=== PATIENT | female | born 1960 | race Asian ===

== ENCOUNTER 2023-11-24 11:01 | Emergency (ER) | payer SELFPAY ==
[2023-11-24 11:06] VITALS: BP 104/80
--- NOTE | 2023-11-24 11:10 | ED.GENMED ---
ED Provider Triage
<Kasey Story PA-C - Last Filed: 11/24/23 11:14>
-
Patient seen by provider in Triage?: Seen in Triage
Attestation: A medical screening examination has been initiated by a qualified medical provider. Based on the assessment performed at this time, it has been determined that an emergent medical condition may exist and the patient has been informed
that further medical evaluation and possible additional diagnostic testing may be needed.
HPI: 63yoF here with intermittent chest pain x 5 days. Radiates to neck. No dyspnea. Hx of HLD.
GENERAL: Alert , in no apparent distress
EYE: No visual abnormalities.
NECK: Trachea midline
ENT: No visible abnormalities.
LUNGS: No acute respiratory distress
NEUROLOGICAL: Alert and oriented
SKIN: Skin intact. No visible changes.
MUSCULOSKELETAL: Moving extremities normally
PSYCH: Normal and appropriate interaction.
This is a medical evaluation conducted in person to initiate diagnostic evaluation and provide initial therapeutics. Please see further documentation by the treating clinician.
Cardiac labs, EKG, and CXR ordered.
History of Present Illness
<Kasey Story PA-C - Last Filed: 11/24/23 11:14>
General
Chief Complaint: Chest Pain
Time Seen by Provider: 11/24/23 11:52
<Prieto Girard MD - Last Filed: 11/25/23 15:04>
General
Source: patient
Exam Limitations: none
Nursing documentation reviewed up to this point in time: agreed with
History of Present Illness
History of Present Illness:
Patient with history of hypercholesterolemia, status post right shoulder injury 6 months ago, presents to ED secondary to intermittent left-sided chest pain over the past 5 days. Chest pain described as tightness, intermittent radiation to left
side of neck, without any alleviating or exacerbating factors. Denies associated shortness of breath, nausea, diaphoresis, or dizziness. Chest pain has lasted approximately 30 minutes with spontaneous resolution and this has happened 3-4 times
daily for the past 5 days. Denies previous history of similar symptoms. Denies family history of heart disease. Denies smoking. Denies leg pain or swelling. Denies back pain.
Review of Systems
<Prieto Girard MD - Last Filed: 11/25/23 15:04>
Review of Systems
Allergies reviewed?: Yes
All Other Systems: ROS reviewed and negative except as documented in HPI and ROS
Constitutional: Reports no symptoms
EENT: Reports no symptoms
Respiratory: Reports no symptoms
Cardiac: Reports chest pain
ABD/GI: Reports no symptoms
: Reports no symptoms
Musculoskeletal: Reports no symptoms
Skin: Reports no symptoms
Neurological: Reports no symptoms
Phy Exam
<Prieto Girard MD - Last Filed: 11/25/23 15:04>
Physical Exam
Physical Exam:
Physical Exam
General: no apparent distress, not acutely ill. afebrile
Head: nc/at. eomi
Neck: supple. no meningeal signs.
Heart: s1/s2 regular rate and rhythm, systolic ejection murmur. equal radial pulses.
Lungs: no acute respiratory distress. clear bilaterally
Abdomen: normal bowel sounds. not tender.
Neuro: alert and oriented. no focal neurological deficits
Skin: no rash
Psychiatric: well kept. interactive and cooperative
Extremities: no edema. no calf tenderness.
Scores
<Prieto iGrard MD - Last Filed: 11/25/23 15:04>
Heart Score for Chest Pain Patients
STEMI patient?: No
History: Slightly or Non-Suspicious
ECG: Normal
Age: >45 - <65 years
Risk Factors: 1 or 2 Risk Factors
Troponin: </= Normal Limit
Heart Score for Chest Pain Patients: 2
Heart Score Risk: 2.5% MACE over next 6 weeks
Course
<Kasey Story PA-C - Last Filed: 11/24/23 11:14>
Orders/Labs/Results
Orders:
Orders
11/24/23 11:02
ECG [Electrocardiogram (*1)] Urgent
Reason for Study: Chest Pain
EKG- Treatment ONCE
11/24/23 11:11
Complete Blood Count/With Diff Urgent
Comprehensive Metabolic Panel Urgent
Troponin I Urgent
11/24/23 11:15
CR Chest - 2 Views Urgent
Comment:
Reason For Exam: CP
11/24/23 12:25
EKG [Electrocardiogram (*1)] Urgent
Reason for Study: Chest Pain
11/24/23 12:26
EKG- Treatment ONCE
11/24/23 12:33
D-Dimer Urgent
11/24/23 15:10
Troponin I Urgent
Abnormal Lab Results
11/24/23
11:11
MCV 79.6 L fL
(81.0-99.0)
MCH 26.8 L pg
(27.0-31.0)
RDW 15.5 H %
(11.5-14.5)
Monocytes % 10.0 H %
(1.7-9.3)
Glucose 115 H mg/dl
(70-99)
11/24/23 11:11
11/24/23 11:11
Vital Signs
Initial and Last Documented VS:
Initial Vital Signs
Temp Pulse Resp BP Pulse Ox
99 F 87 18 104/80 99
11/24/23 11:06 11/24/23 11:06 11/24/23 11:06 11/24/23 11:06 11/24/23 11:06
Last Documented Vital Signs
Temp Pulse Resp BP Pulse Ox
99 F 74 18 110/66 98
11/24/23 11:06 11/24/23 16:17 11/24/23 16:17 11/24/23 16:17 11/24/23 16:17
<Prieto Girard MD - Last Filed: 11/25/23 15:04>
Orders/Labs/Results
Orders:
Orders
11/24/23 11:02
ECG [Electrocardiogram (*1)] Urgent
Reason for Study: Chest Pain
EKG- Treatment ONCE
11/24/23 11:11
Complete Blood Count/With Diff Urgent
Comprehensive Metabolic Panel Urgent
Troponin I Urgent
11/24/23 11:15
CR Chest - 2 Views Urgent
Comment:
Reason For Exam: CP
11/24/23 12:25
EKG [Electrocardiogram (*1)] Urgent
Reason for Study: Chest Pain
11/24/23 12:26
EKG- Treatment ONCE
11/24/23 12:33
D-Dimer Urgent
11/24/23 15:10
Troponin I Urgent
Abnormal Lab Results
11/24/23
11:11
MCV 79.6 L fL
(81.0-99.0)
MCH 26.8 L pg
(27.0-31.0)
RDW 15.5 H %
(11.5-14.5)
Monocytes % 10.0 H %
(1.7-9.3)
Glucose 115 H mg/dl
(70-99)
11/24/23 11:11
11/24/23 11:11
Vital Signs
Initial and Last Documented VS:
Initial Vital Signs
Temp Pulse Resp BP Pulse Ox
99 F 87 18 104/80 99
11/24/23 11:06 11/24/23 11:06 11/24/23 11:06 11/24/23 11:06 11/24/23 11:06
Last Documented Vital Signs
Temp Pulse Resp BP Pulse Ox
99 F 74 18 110/66 98
11/24/23 11:06 11/24/23 16:17 11/24/23 16:17 11/24/23 16:17 11/24/23 16:17
<Prieto Girard MD - Last Filed: 11/25/23 15:04>
MDM/Problems Addressed
MDM/Problems Addressed:
Patient with unremarkable workup in ED, including blood work, EKG, and chest x-ray. D-dimer negative. Patient remains afebrile, hemodynamically stable, and nontoxic-appearing. Will repeat troponin and if negative, patient will be discharged home
for an outpatient follow-up with cardiology. Patient and family expressed understanding at time of discharge, including instructions to return to ED with recurrent or worsening or different symptoms.
<Prieto Girard MD - Last Filed: 11/25/23 15:04>
*EKG
Interpreted by ED Provider?: Yes
EKG Intrepretation Date: 11/24/23
Heart Rate: 82
Rate: normal
Rhythm: sinus
[place]: normal axis
Interval: normal interval
*Critical Care Note
Total Time (30-74mins, 75-104mins- exclusive of procedures): Not Applicable
ED Attending Note
<Kasey Story PA-C - Last Filed: 11/24/23 11:14>
-
Portions of this chart may have been created with voice recognition software.� Occasional wrong word or��sound alike� substitutions may have occurred due to the inherent limitations of voice recognition software.
Discharge Plan
Departure
Patient Disposition: Home (Routine Discharge)
Patient with high blood pressure during this ER visit?: No
Condition: Good
Discharge Problem:
Chest pain
Instructions: Chest Pain [facility] Follow Up
Referrals:
J Luis Rodriguez MD [Active] -
Activity Restrictions/Additional Instructions:
As discussed, please follow-up with referred air traffic control operator for further evaluation and treatment. Please consider return to ED with recurrent or worsening symptoms.
Interventions
Interventions:
*Risk Screen - Suicide Last Done: 11/24/23 11:06
*General Assessment Last Done: 11/24/23 11:06
*Neglect/Abuse Screening Last Done: 11/24/23 11:06
*ED COVID-19 Vaccine History Last Done: 11/24/23 11:06
*Nursing Disposition Last Done: 11/24/23 16:17
ED- Cardiac Assessment Last Done: 11/24/23 12:24
Discharge Date and Time
Discharge Date/Time: 11/24/23 15:30
Print Language: FRENCH
[2023-11-24 11:21] LABS: % Basophils 0.5 % (0-2); % Eosinophils 0.5 % (0-6); % Immature Granulocytes 0.2 % (0-0.5); % Lymphocytes 31.3 % (20.5-51.1); % Neutrophils 57.5 % (42.2-75.2); Absolute Lymphocytes 1.8 10^3/uL (1.2-3.4); Absolute Monocytes 0.6 10^3/uL (0.1-0.6); Absolute Neutrophils 3.3 10^3/uL (1.4-6.5); Hematocrit 40.1 % (37.0-47.0); Hemoglobin 13.5 g/dL (12.0-16.0); Mean Corp Hgb Conc. 33.7 g/dL (33.0-37.0); Mean Corpuscular Hgb 26.8 pg (27.0-31.0); Mean Corpuscular Volume 79.6 fL (81.0-99.0); Mean Platelet Volume 9.9 fL (7.4-10.4); Nucleated Red Blood Cells % 0 %; Platelet Count 269 10^3/uL (130-400); Red Blood Cell Count 5.04 10^6/uL (4.20-5.40); Red Cell Dist. Width 15.5 % (11.5-14.5); White Blood Cell Count 5.8 10^3/uL (4.8-10.8)
[2023-11-24 11:34] LABS: ALT (SGPT) 17 U/L (0-35); AST (SGOT) 27 U/L (14-36); Albumin 4.5 g/dl (3.5-5.0); Alkaline Phosphatase 81 U/L (38-126); Blood Urea Nitrogen 14 mg/dl (7-17); Calcium 9.4 mg/dl (8.4-10.2); Carbon Dioxide 30 mmol/L (22-30); Chloride 102 mmol/L (98-107); Glucose 115 mg/dl (70-99); Potassium 4.4 mmol/L (3.5-5.1); Sodium 141 mmol/L (135-145); Total Bilirubin 0.4 mg/dl (0.2-1.3); Total Protein 7.2 g/dl (6.3-8.2); eGFR > 60.00
[2023-11-24 11:44] LABS: Troponin I < 0.012 ng/ml
[2023-11-24 12:20] VITALS: BMI 17.2
[2023-11-24 12:22] VITALS: BP 134/69
[2023-11-24 13:12] LABS: D-Dimer < 0.27 ug/mlFEU (0.00-0.50)
[2023-11-24 15:40] LABS: Troponin I < 0.012 ng/ml
[2023-11-24 16:17] VITALS: BP 110/66
== END 2023-11-24 15:30 | disposition home or self-care (01) ==
LOC: EMR 11:01
PROVIDERS: EMERGENCY PHYSICIAN Emergency Medicine
DX: R07.89 Other chest pain (principal); E78.00 Pure hypercholesterolemia, unspecified
CPT/HCPCS: 99283; 71046; 80053; 84484; 85025; 85379; 93005

== ENCOUNTER 2025-01-18 20:48 | Emergency (ER) | payer OTHER, SELFPAY ==
[2025-01-18 20:58] VITALS: BP 121/75
[2025-01-18 21:29] LABS: Hematocrit 40.3 % (37.0-47.0); Hemoglobin 13.2 g/dL (12.0-16.0); Mean Corp Hgb Conc. 32.8 g/dL (33.0-37.0); Mean Corpuscular Volume 78.4 fL (81.0-99.0); Nucleated Red Blood Cells % 0 %; Platelet Count 268 10^3/uL (130-400); Red Cell Dist. Width 14.6 % (11.5-14.5)
[2025-01-18 21:48] LABS: ALT (SGPT) 17 U/L (0-35); AST (SGOT) 23 U/L (14-36); Albumin 4.6 g/dl (3.5-5.0); Alkaline Phosphatase 105 U/L (38-126); Blood Urea Nitrogen 14 mg/dl (7-17); Calcium 9.2 mg/dl (8.4-10.2); Carbon Dioxide 28 mmol/L (22-30); Chloride 102 mmol/L (98-107); Glucose 114 mg/dl (70-99); Lipase 62 U/L (23-300); Potassium 4.1 mmol/L (3.5-5.1); Sodium 135 mmol/L (135-145); Total Protein 7.7 g/dl (6.3-8.2); eGFR > 60.00
--- NOTE | 2025-01-18 23:19 | ED.GENMED ---
History of Present Illness
<Priya Perales MD, Resident - Last Filed: 01/19/25 01:05>
General
Chief Complaint: Abdominal Pain
Source: patient and family
Exam Limitations: none
Time Seen by Provider: 01/18/25 22:45
Nursing documentation reviewed up to this point in time: agreed with
History of Present Illness
History of Present Illness:
64-year-old F with a history of HLD who presents with subacute right upper quadrant/back pain.
Patient reports that yesterday she began to experience pain that wraps from the epigastric region around the quadrant of the to the back/paraspinal muscles at the same level. States that the pain is worse with lying flat and better with sitting up.
She was not doing anything unusual yesterday afternoon when the pain started, however she notes that she was doing some light weight lifting (2 pound weight) at home the day before. The pain got worse today, prompting her to come to the ED.
Patient tried taking a muscle relaxant that she got from the physician in [facility] (not sure what medication it is), which did not help. Patient denies any history of GERD, denies burning quality of pain. Unable to exactly describe the quality of
the pain. Denies any chest pain, denies any fever/chills, denies any nausea/vomiting. States that the pain is worse with deep inhalation. Endorses a mild cough that started today. Denies any bulge from the epigastric region. Endorses gas,
consistent with her baseline, but no constipation. Denies history of kidney stones, denies dysuria. Only medication is statin. Pain does not radiate anywhere else.
Past History
<Priya Perales MD, Resident - Last Filed: 01/19/25 01:05>
Past History
ED Past Medical History: Hypercholesterolemia
ED Past Surgical History: None
Patient has exhibited threatening behavior?: No
Social History
Living: with family
Review of Systems
<Priya Perales MD, Resident - Last Filed: 01/19/25 01:05>
Review of Systems
All Other Systems: ROS reviewed and negative except as documented in HPI and ROS
Constitutional: Reports no symptoms
EENT: Reports no symptoms
Respiratory: Reports cough
Cardiac: Reports no symptoms
ABD/GI: Reports abdominal pain
: Reports no symptoms
Musculoskeletal: Reports back pain
Skin: Reports no symptoms
Neurological: Reports no symptoms
Psychiatric: Reports no symptoms
Phy Exam
<Priya Perales MD, Resident - Last Filed: 01/19/25 01:05>
General Physical Exam
General Presentation: mild distress
General age: appears stated age
General Skin: warm and dry
General Habitus: normal
General Mental: alert
General Hydration: appears well hydrated
Cardiovascular Exam
Cardiovascular Exam: regular rate/rhythm and no edema
Heart Sounds: normal
Pulmonary Exam
Pulmonary Exam: lungs clear and no respiratory distress
Gastrointestinal Exam
Gastrointestinal Exam: soft, non distended, no abdominal hernia, tender (Tender to palpation in the epigastrium and right upper quadrant) and other (No CVA tenderness)
Neurological Exam
Neurological Exam: alert
Musculoskeletal Exam
Musculoskeletal Exam: back pain (Tenderness to palpation over right paraspinal muscles at mid thoracic level; no tenderness to palpation along spine or elsewhere in back) and no edema
Skin Exam
Skin Exam: normal color and warm/dry
Psychiatric Exam
Psychiatric Exam: normal mood/affect
Course
<Priya Perales MD, Resident - Last Filed: 01/19/25 01:05>
Orders/Labs/Results
Orders:
Orders
01/18/25 21:13
Complete Blood Count/With Diff Urgent
Comprehensive Metabolic Panel Urgent
Lipase Urgent
Troponin I Urgent
Comment: ADD ON/SERUM
01/18/25 21:25
Urinalysis Reflex To Culture Urgent
Date Specimen was Collected: 01/18/25
Time Specimen was Collected: 21:26
01/18/25 23:27
Electrocardiogram (*1) Urgent
Reason for Study: Abdominal Pain
EKG- Treatment ONCE
Acetaminophen [Tylenol] 650 mg PO NOW STA
01/18/25 23:28
Add On- LAB Urgent
Tests Added?: troponin
01/18/25 23:49
HYDROmorphone [Dilaudid] 0.5 mg IV NOW STA
Ondansetron Injectable [Zofran] 4 mg IV NOW STA
01/19/25 00:00
US Abdomen Limited Urgent
Reason For Exam: RUQ/epigastric pain radiating to back
01/19/25 00:05
CR Chest - 2 Views Urgent
Reason For Exam: back/rib pain
Abnormal Lab Results
01/18/25
21:13
MCV 78.4 L fL
(81.0-99.0)
MCH 25.7 L pg
(27.0-31.0)
MCHC 32.8 L g/dL
(33.0-37.0)
RDW 14.6 H %
(11.5-14.5)
Absolute Neuts (auto) 6.7 H 10^3/uL
(1.4-6.5)
Absolute Monos (auto) 1.0 H 10^3/uL
(0.1-0.6)
Lymphocytes % 19.3 L %
(20.5-51.1)
Monocytes % 10.4 H %
(1.7-9.3)
Glucose 114 H mg/dl
(70-99)
01/18/25 21:13
01/18/25 21:13
Vital Signs
Initial and Last Documented VS:
Initial Vital Signs
Temp Pulse Resp BP Pulse Ox
98.2 F 94 20 121/75 98
01/18/25 20:58 01/18/25 20:58 01/18/25 20:58 01/18/25 20:58 01/18/25 20:58
Last Documented Vital Signs
Temp Pulse Resp BP Pulse Ox
98.2 F 68 17 124/73 98
01/18/25 20:58 01/19/25 00:54 01/19/25 00:54 01/19/25 00:54 01/19/25 00:54
<Ambrocio Ordonez, DO - Last Filed: 01/19/25 01:06>
Orders/Labs/Results
Orders:
Orders
01/18/25 21:13
Complete Blood Count/With Diff Urgent
Comprehensive Metabolic Panel Urgent
Lipase Urgent
Troponin I Urgent
Comment: ADD ON/SERUM
01/18/25 21:25
Urinalysis Reflex To Culture Urgent
Date Specimen was Collected: 01/18/25
Time Specimen was Collected: 21:26
01/18/25 23:27
Electrocardiogram (*1) Urgent
Reason for Study: Abdominal Pain
EKG- Treatment ONCE
Acetaminophen [Tylenol] 650 mg PO NOW STA
01/18/25 23:28
Add On- LAB Urgent
Tests Added?: troponin
01/18/25 23:49
HYDROmorphone [Dilaudid] 0.5 mg IV NOW STA
Ondansetron Injectable [Zofran] 4 mg IV NOW STA
01/19/25 00:00
US Abdomen Limited Urgent
Reason For Exam: RUQ/epigastric pain radiating to back
01/19/25 00:05
CR Chest - 2 Views Urgent
Reason For Exam: back/rib pain
Abnormal Lab Results
01/18/25
21:13
MCV 78.4 L fL
(81.0-99.0)
MCH 25.7 L pg
(27.0-31.0)
MCHC 32.8 L g/dL
(33.0-37.0)
RDW 14.6 H %
(11.5-14.5)
Absolute Neuts (auto) 6.7 H 10^3/uL
(1.4-6.5)
Absolute Monos (auto) 1.0 H 10^3/uL
(0.1-0.6)
Lymphocytes % 19.3 L %
(20.5-51.1)
Monocytes % 10.4 H %
(1.7-9.3)
Glucose 114 H mg/dl
(70-99)
01/18/25 21:13
01/18/25 21:13
Vital Signs
Initial and Last Documented VS:
Initial Vital Signs
Temp Pulse Resp BP Pulse Ox
98.2 F 94 20 121/75 98
01/18/25 20:58 01/18/25 20:58 01/18/25 20:58 01/18/25 20:58 01/18/25 20:58
Last Documented Vital Signs
Temp Pulse Resp BP Pulse Ox
98.2 F 68 17 124/73 98
01/18/25 20:58 01/19/25 00:54 01/19/25 00:54 01/19/25 00:54 01/19/25 00:54
<Priya Perales MD, Resident - Last Filed: 01/19/25 01:05>
MDM/Problems Addressed
Differential Diagnosis Includes:
DDx:
ACS
Cholecystitis
Pancreatitis
GERD
Abdominal hernia
Abdominal/paraspinal muscle strain
Nephrolithiasis
UTI
History and exam most consistent with MSK etiology
MDM/Problems Addressed:
- CBC, CMP
- UA w reflex
- Lipase
- EKG, troponin
- CXR
- RUQ US
- 0.5 mg Dilaudid
- 4 mg Zofran
<Priya Perales MD, Resident - Last Filed: 01/19/25 01:05>
*Pulse Oximetry
SaO2: 98
Oxygen Mode of Delivery: Room air
Patient hypoxic: no
*Critical Care Note
Total Time (30-74mins, 75-104mins- exclusive of procedures): Not Applicable
<Priya Perales MD, Resident - Last Filed: 01/19/25 01:05>
Update Note
Update Note:
11:30 PM
CBC and CMP unremarkable, no leukocytosis, lipase wnl -low concern for intra-abdominal infection, pancreatitis
1 AM
Troponin not elevated, EKG unremarkable -low concern for ACS
Patient without any palpable abdominal mass on exam, normotensive (120/80), no history of hypertension, slow progressive onset of pain over the course of 48 hours -low concern aortic dissection
RUQ ultrasound without any evidence of cholecystitis or gallstones -low concern for cholecystitis
CXR (pending formal read) without any evidence of abnormalities, no fractures, no free air, no consolidations, no vertebral abnormalities -rule out intrathoracic abnormality
Most likely remaining etiology is musculoskeletal. Patient's pain much improved on exam s/p 0.5 mg Dilaudid. Will plan to discharge patient with short course of opioid analgesics and clear return precautions.
ED Attending Note
<Priya Perales MD, Resident - Last Filed: 01/19/25 01:05>
-
Portions of this chart may have been created with voice recognition software.� Occasional wrong word or��sound alike� substitutions may have occurred due to the inherent limitations of voice recognition software.
<Ambrocio Ordonez DO - Last Filed: 01/19/25 01:06>
ED Attending Note
Patient seen and examined by attending physician: Yes
I performed a history and physical exam of patient and discussed management with resident, I reviewed resident's note and agree with documented findings and plan of care.: Yes
ED Attending Note:
I evaluated the patient at bedside, she does appear somewhat uncomfortable. She does have tenderness that also involves the chest wall both anteriorly and posteriorly on the right side which is more so than tenderness in the right upper quadrant.
Her white count is normal, her chemistries including LFTs and lipase are normal. Will obtain ultrasound imaging as well as chest x-ray. Will give IV narcotic analgesia as well.
Appears much improved on reassessment at 1 AM. She has no significant tenderness on reexamination. She has no palpable mass to suggest aortic pathology. She has no history of high blood pressure. Very reproducible and positional presentation.
Discharge Plan
Departure
Patient Disposition: Home (Routine Discharge)
Date of Disposition: 01/19/25
Time of Disposition: 01:01
Patient with high blood pressure during this ER visit?: Yes
Discharge Problem:
Abdominal pain
Instructions: Abdominal Pain, BLOOD PRESSURE
Prescriptions:
New
tramadol 50 mg tablet
50 - 100 mg PO Q8H PRN (Reason: Pain) Qty: 14 0RF
Referrals:
Dotty Clay CRNP [Family Provider, Family Practice]
Activity Restrictions/Additional Instructions:
White blood cell count is normal, hemoglobin normal, chemistries unremarkable, troponin shows no sign of heart attack. I see no abnormality on the chest x-ray. Ultrasound imaging shows no sign of gallstones and no sign of kidney abnormalities. I
sent a prescription for tramadol to your pharmacy for a few days. Return if worse or other concerns.
Interventions
Interventions:
*Risk Screen - Suicide Last Done: 01/18/25 20:58
*General Assessment Last Done: 01/18/25 20:58
*Neglect/Abuse Screening Last Done: 01/18/25 20:58
*ED COVID-19 Vaccine History Last Done: 01/18/25 20:58
*ED Influenza Vaccine History Last Done: 01/18/25 20:58
TW-[id number]-[id number] Assessment Last Done: 01/19/25 00:00
Discharge Date and Time
Print Language: ARGENT[place]
[2025-01-18] MEDS: ZOFRAN 4 MG IV (23:56)
[2025-01-18] MEDS: DILAUDID 0.5 MG IV (23:56)
[2025-01-19 00:27] LABS: Troponin I < 0.012 ng/ml
[2025-01-19 00:54] VITALS: BP 124/73
== END 2025-01-19 01:30 | disposition home or self-care (01) ==
LOC: EMR 20:48
PROVIDERS: EMERGENCY PHYSICIAN Emergency Medicine; FAMILY PHYSICIAN Nurse Practitioner
DX: R10.11 Right upper quadrant pain (principal); R03.0 Elevated blood-pressure reading, without diagnosis of hypertension; E78.00 Pure hypercholesterolemia, unspecified
CPT/HCPCS: 99284; 96374; 96375; 71046; 76705; 80053; 83690; 84484; 85025; 93005